=== PATIENT | male | born 1930 | race Caucasian/White ===

== ENCOUNTER 2016-08-31 17:10 | Inpatient (IN) | payer MEDICARE, BC ==
[~2016-08-31] VITALS: Ht 167.6 cm; Wt 78.5 kg
[~2016-08-31 17:10] MED LIST: ASCO500T8 PO; ASPI-84 PO; CHOL100040 PO; DICL75TA PO; DUTA0.5C PO; FOLI1TAB2 PO; HYDR1TAB PO; METO25TA6 PO; SIMV40TA2 PO; TAMS-12 PO
--- NOTE | 2016-08-31 17:20 | NUR ---
AAOX3, came to ER c/o CHEST PAIN WITH SOB FOR A FEW DAYS; CP AND SOB WORSENS WITH ACTIVITY. Skin is warm and dry. Resp is even and unlabored with NAD noted. Pain free during assessment. Assisted to hospital gown, placed on monitor. Will continuously monitor the patient. Awaiting MD for eval.
--- NOTE | 2016-08-31 17:21 | NUR ---
CALLED NURSING SUP. FOR TELE BED
[2016-08-31 17:32] LABS: EOSINOPHILS # (AUTO) 0.2 /CMM (0.0-0.7); EOSINOPHILS % (AUTO) 4.3 % (0.0-6.0); HEMATOCRIT 43 % (39-51); HEMOGLOBIN 14.2 g/dL (13.5-17.5); LYMPHOCYTES # (AUTO) 0.6 /CMM (0.8-4.8); LYMPHOCYTES % (AUTO) 13.3 % (20.0-44.0); MEAN CORPUSCULAR HEMOGLOBIN 29 PG (26.0-33.0); MEAN CORPUSCULAR HGB CONC 34 g/dl (31.0-36.0); MEAN CORPUSCULAR VOLUME 86 fL (80-96); MONOCYTES # (AUTO) 0.4 /CMM (0.1-1.30); MONOCYTES % (AUTO) 8.4 % (2.0-12.0); NEUTROPHILS # (AUTO) 3.5 /CMM (1.8-8.9); PLATELET COUNT (AUTO) 164 /CMM (150-450); RDW COEFFICIENT OF VARIATION 15.3 (11.5-15.0); RED BLOOD CELL COUNT(AUTO) 4.95 MIL/uL (4.5-6.0); WHITE BLOOD COUNT (AUTO) 4.7 K/uL (4.3-11.0)
--- NOTE | 2016-08-31 17:39 | NUR ---
Report given to BERTO Quispe for MELISSA
[2016-08-31 17:50] LABS: INR 1.02 (0.87-1.13); PROTHROMBIN TIME 10.9 SECS (9.5-12.7)
[2016-08-31 17:54] LABS: CALCIUM, SERUM 8.6 mg/dL (8.5-10.1); CREATININE 1.8 mg/dL (0.6-1.3); POTASSIUM 4.6 mmol/L (3.5-5.1)
[2016-08-31 18:02] LABS: TROPONIN I 0.027 ng/mL (0.00-0.056)
[2016-08-31 18:07] LABS: ALBUMIN 4.2 g/dL (3.4-5.0); BILIRUBIN,DIRECT 0.2 mg/dL (0.0-0.2); BILIRUBIN,TOTAL 0.8 mg/dL (0.2-1.0); TOTAL PROTEIN, SERUM 6.9 g/dL (6.4-8.2)
[2016-08-31] MEDS ORDERED: ASPI81TA2 PO (18:30)
[2016-08-31] MEDS ORDERED: PANT40TA2 PO (18:30)
[2016-08-31] MEDS ORDERED: AMLO5TAB2 PO (18:30)
--- NOTE | 2016-08-31 18:49 | NUR ---
Patient does not wish to proceed with medical care recommended by Dr. BOOTHE. Patient given information related to possible complications, up to and including , which could occur as a result of leaving the hospital at this time. Patient verbalizes understanding of risks involved due to leaving against medical advice. Patient has signed AMA form.
--- NOTE | 2016-08-31 18:55 | NUR ---
IV removed. Catheter intact and site benign. Pressure and 4x4 applied to site. No bleeding noted.
--- NOTE | 2016-08-31 19:00 | NUR ---
PT AMBULATED OUT AND DID NOT FEEL WELL. PT DECIDED TO STAY.
--- NOTE | 2016-08-31 19:05 | NUR ---
PT IS BACK IN ROOM #7.
[2016-08-31] MEDS ORDERED: FUROSEMIDE 20 MG/2 ML VIAL ONE (19:08)
[2016-08-31] MEDS ORDERED: ASPIRIN 81 MG TAB.CHEW ONE (19:08)
--- NOTE | 2016-08-31 19:10 | NUR ---
CALLED [facility] DR. COHEN
--- NOTE | 2016-08-31 19:13 | NUR ---
PT REC'D 162 MG ASPIRIN PO.
[2016-08-31] MEDS ORDERED: NITROGLYCERIN 0.4 MG/TAB BOTTLE ONE (19:24)
[2016-08-31] MEDS ORDERED: NITROGLYCERIN 0.4 MG/TAB BOTTLE SL PRN (19:30)
[2016-08-31] MEDS ORDERED: FUROSEMIDE 20 MG/2 ML VIAL IV SCH (19:30)
[2016-08-31] MEDS ORDERED: ASPIRIN 81 MG TAB.CHEW PO ONE (19:30)
--- NOTE | 2016-08-31 19:39 | NUR ---
PT DENIES CP AT THIS TIME. ONLY ONE NITRO GIVEN SL. DR. BOOTHE IS AWARE. NO FURTHER NITRO TO BE GIVEN AT THIS TIME.
--- NOTE | 2016-08-31 19:48 | NUR ---
PT'S IS AT THE BEDSIDE.
--- NOTE | 2016-08-31 20:41 | NUR ---
REPORT GIVEN TO BERTO LOVETT
[2016-08-31] MEDS ORDERED: ENOXAPARIN SODIUM 30 MG/0.3 ML DISP.SYRIN SQ SCH (21:00)
[2016-08-31] MEDS ORDERED: MORPHINE SULFATE INJ 2 MG/ML DISP.SYRIN IV PRN (21:00)
[2016-08-31] MEDS ORDERED: NITROGLYCERIN PACKET 1 GM PACKET TD PRN (21:00)
[2016-08-31] MEDS ORDERED: ZOLPIDEM TARTRATE 5 MG TABLET PO PRN (21:00)
[2016-08-31] MEDS ORDERED: Z GUARD REMEDY 2 OZ OINT TP PRN (21:00)
[2016-08-31] MEDS ORDERED: ACETAMINOPHEN 325 MG TABLET PO PRN (21:00)
[2016-08-31] MEDS ORDERED: MAG HYDROX/AL HYDROX/SIMETH 30 ML UDC PO PRN (21:00)
[2016-08-31] MEDS ORDERED: PANTOPRAZOLE 40 MG TABLET.DR PO SCH (21:00)
[2016-08-31] MEDS ORDERED: HYDROCODONE/APAP 5/325MG 1 EACH TABLET PO PRN (21:00)
[2016-08-31] MEDS ORDERED: ENOXAPARIN SODIUM 40 MG/0.4 ML DISP.SYRIN SQ SCH (21:00)
[2016-08-31] MEDS ORDERED: ONDANSETRON HCL/PF 4 MG/2 ML VIAL IVP PRN (21:00)
[2016-08-31] MEDS ORDERED: MAGNESIUM HYDROXIDE 30 ML UDC PO PRN (21:00)
--- NOTE | 2016-08-31 21:05 | NUR ---
PT TRANSPORTED TO [facility] VIA GURNEY PER PROTOCOL.
--- NOTE | 2016-08-31 21:20 | NUR ---
RN NOTES RECEIVED PX AWAKE, ALERT, ORIENTED AMBULATORY, TRANSFERRED FROM ER VIA GURNEY; PX CAME FROM HOME WITH CC OF CHEST PAIN, AND SOB; ORIENTED X 3, FOLLOWS COMMAND, COOPERATIVE; NOT IN RESP DISTRESS; HOOKED PX ON THE MONITOR, NSR, BIBASAL CRACKLES NOTED BUT RESP EVEN AND UNLABORED, NOT IN DISTRESS; MOVES INDEPENDENTLY IN BED; NOT SKIN BREAKDOWN; PIV LEFT AC FLUSHED WITH SALINE,INTACT,PATENT; DISCUSSED PLANN OF CARE; ORIENTED TO THE UNIT.
[2016-08-31 21:30] VITALS: BP 141/65
[2016-09-01] VITALS: BP 138/62
--- NOTE | 2016-09-01 00:22 | NUR ---
RN NOTES CONDITION AND NEURO STATUS UCHANGED; DENIED CHEST PAIN, SOB, DIZZINESS; NSR ON MONITOR; ON CONTINUOUS PULSE OX; ON NC AT 2 LPM SATURATING 96%; PLACED BILAT DVT PUMPS.
[2016-09-01 04:00] VITALS: BP 138/63
--- NOTE | 2016-09-01 06:12 | NUR ---
RN NOTES HAD 1 BM AND DIAPER SOAKED OF URINE; CLEANED PX AND CHANGED GOWN AND BED LINENS; TOLERATED PROCEDURE WELL; CHANGED DRESSING ON SACRAL AREA USING MEPILEX; DENIED PAIN, SOB, N/V; NO NEW SKIN BREAKDOWN; PIV STILL INTACT AND PATENT; SR ON MONITOR; WILL ENDORSE TO NEXT RN. Addendum: 09/01/16 at 0617 by STACY NANCE RN WRONG ENTRY, WRONG PATIENT
--- NOTE | 2016-09-01 06:17 | NUR ---
RN NOTES CONDITION AND NEURO STATUS UNCHANGED; DENIED PAIN, SOB, N/V, CHEST PAIN, SR ON MONITOR WITH O2 SAT AT 94-95%; REFUSED EARLY AM CARE; REFUSED BLOOD DRAW, INFORMED THAT INTERNET SALES MANAGER WILL COME BACK DURING THE DAY. PIV FLUSHED PATENT AND INTACT, NO SKIN BREAKDOWN; WILL ENDORSE TO NEXT RN.
[2016-09-01] MEDS ORDERED: PANTOPRAZOLE 40 MG TABLET.DR PO SCH (07:30)
--- NOTE | 2016-09-01 07:30 | NUR ---
[facility] RN- INITIAL NOTE RECEIVED PT A/O X3. ON 2L NC, RESPIRATIONS EVEN AND UNLABORED, NO SOB OR DISTRESS PRESENT. TELE MONITOR REVEALS SINUS RHYTHM, HR= 65. PT DENIES CHEST PAIN OR DISCOMFORT AT THIS TIME. LAC 18G HL FLUSHED, PATENT AND INTACT. IV SITE FREE OF REDNESS, SWELLING & INFLAMMATION. SAFETY MEASURES TAKEN: BED LOCKED AND IN LOW POSITION, SIDE RAILS UP X2, BED ALARM ON AND CALL LIGHT WITHIN REACH, WILL CONTINUE TO MONITOR.
[2016-09-01 08:00] VITALS: BP 142/70
--- NOTE | 2016-09-01 08:00 | NUR ---
DR. PARIKH AT BEDSIDE EVALUATING PT. PT VERBALIZED DESIRE TO LEAVE AMA. AWARE. JANE CHARGE NURSE MADE AWARE. WILL CONTINUE TO MONITOR.
[2016-09-01] MEDS ORDERED: TAMSULOSIN 0.4 MG CAP.SR.24H PO SCH (09:00)
[2016-09-01] MEDS ORDERED: DUTASTERIDE (0.5 MG) 0.5 MG CAPSULE PO SCH (09:00)
[2016-09-01] MEDS ORDERED: METOPROLOL TARTRATE 25 MG TABLET PO SCH (09:00)
[2016-09-01] MEDS ORDERED: ISOSORBIDE DINITRATE (20MG) 20 MG TABLET PO SCH (09:00)
[2016-09-01] MEDS ORDERED: SIMVASTATIN 40 MG TABLET PO SCH (09:00)
[2016-09-01] MEDS ORDERED: ASPIRIN 81 MG TAB.CHEW PO SCH (09:00)
--- NOTE | 2016-09-01 09:30 | NUR ---
PT LEFT AMA, AMBULATORY AND HAS HIS CAR IN THE PARKING LOT. PT DENIES CHEST PAIN OR DISCOMFORT. PT AWARE OF RISKS/BENEFITS OF LEAVING AMA. ALL BELONGINGS SENT WITH PT. IV REMOVED. CHARGE NURSE AWARE.
== END 2016-09-01 09:37 | disposition left against medical advice (07) | DRG 303 ==
LOC: ER 17:11 → TELE 19:14 → TELE-TD 20:35
DX: I25.110 Atherosclerotic heart disease of native coronary artery with unstable angina pectoris (principal); J98.11 Atelectasis; R07.9 Chest pain, unspecified; N28.9 Disorder of kidney and ureter, unspecified; I73.9 Peripheral vascular disease, unspecified; E78.5 Hyperlipidemia, unspecified; M19.90 Unspecified osteoarthritis, unspecified site; Z90.5 Acquired absence of kidney; I11.9 Hypertensive heart disease without heart failure; Z98.61 Coronary angioplasty status; I70.0 Atherosclerosis of aorta
CPT/HCPCS: 36415; 71010-TC; 80048-TC; 80076-TC; 83880; 84484-TC; 85025-TC; 85730-TC; 87081-TC; A4606; J1650; J1940; Z7610

== ENCOUNTER 2016-12-13 07:49 | Emergency (ER) | payer MEDICARE, BC ==
[~2016-12-13] VITALS: Ht 162.6 cm; Wt 78.0 kg
[2016-12-13 07:49] VITALS: BP 153/86
[~2016-12-13 07:49] MED LIST changes: +AMLO5TAB2 PO; -ASPI-84 PO; +ASPI81TA2 PO; -DICL75TA PO; +PANT40TA2 PO
== END 2016-12-13 08:03 | disposition home or self-care (01) ==
LOC: ER 07:50
DX: S50.12XA Contusion of left forearm, initial encounter (principal); X58.XXXA Exposure to other specified factors, initial encounter; Y93.89 Activity, other specified; Y92.89 Other specified places as the place of occurrence of the external cause; Y99.8 Other external cause status; Z98.890 Other specified postprocedural states
CPT/HCPCS: 99282; A4606; A6253 ×2; Z7610

== ENCOUNTER 2017-08-01 17:17 | Emergency (ER) | payer MEDICARE, BC ==
[~2017-08-01] VITALS: Ht 165.1 cm; Wt 80.7 kg
[~2017-08-01 17:17] MED LIST changes: -AMLO5TAB2 PO; +AMLO5TAB7 PO; +ASPI-1169 PO; -ASPI81TA2 PO
--- NOTE | 2017-08-01 17:25 | NUR ---
SELF PRESENTS TO ED: SOB > 1 WEEK. SEEN BY MD FOR EVAL. NOTED ON AND OFF TACHY. OTHER VS. FAMILY MEMBER AT BS. SAFETY AND COMFORT MEASURES PROVIDED. WILL MONITOR.
--- NOTE | 2017-08-01 17:35 | NUR ---
R AC G 18 IV STARTED, BLOOD TESTS DRAWN AND SEND TO LAB
[2017-08-01 17:47] LABS: BASOPHILS % (AUTO) 0.1 % (0.0-2.0); EOSINOPHILS % (AUTO) 2.7 % (0.0-6.0); HEMATOCRIT 41 % (39-51); HEMOGLOBIN 13.9 g/dL (13.5-17.5); LYMPHOCYTES # (AUTO) 0.7 /CMM (0.8-4.8); LYMPHOCYTES % (AUTO) 12.2 % (20.0-44.0); MEAN CORPUSCULAR HGB CONC 34 g/dl (31.0-36.0); MEAN CORPUSCULAR VOLUME 83 fL (80-96); MONOCYTES # (AUTO) 0.5 /CMM (0.1-1.30); MONOCYTES % (AUTO) 9.7 % (2.0-12.0); NEUTROPHILS # (AUTO) 4.2 /CMM (1.8-8.9); NEUTROPHILS % (AUTO) 75.3 % (43.0-81.0); PLATELET COUNT (AUTO) 182 /CMM (150-450); RDW COEFFICIENT OF VARIATION 14.7 (11.5-15.0); RED BLOOD CELL COUNT(AUTO) 4.93 MIL/uL (4.5-6.0); WHITE BLOOD COUNT (AUTO) 5.6 K/uL (4.3-11.0)
[2017-08-01 18:22] LABS: CALCIUM, SERUM 9.2 mg/dL (8.5-10.1); CARBON DIOXIDE 27 mmol/L (21-32); CHLORIDE 105 mmol/L (98-107); CREATININE 1.6 mg/dL (0.6-1.3); GLUCOSE 128 mg/dL (74-106); POTASSIUM 4.5 mmol/L (3.5-5.1); SODIUM SERUM 139 mmol/L (136-145); UREA NITROGEN, BLOOD 31 mg/dL (7-18)
[2017-08-01 18:26] LABS: INR 1.05 (0.85-1.15)
[2017-08-01 18:29] LABS: TROPONIN I < 0.017 ng/mL (0.00-0.056)
[2017-08-01 18:34] LABS: ALANINE AMINOTRANSFERASE 27 U/L (12-78); ALBUMIN 3.8 g/dL (3.4-5.0); ALKALINE PHOSPHATASE 116 U/L (46-116); ASPARTATE AMINOTRANSFERASE 16 U/L (15-37); B-TYPE NATRIURETIC PEPTIDE 1211 PG/ML (0-125); BILIRUBIN,DIRECT 0.3 mg/dL (0.0-0.2); BILIRUBIN,TOTAL 0.9 mg/dL (0.2-1.0)
--- NOTE | 2017-08-01 18:50 | NUR ---
New ndiaye in ED - 08/01/17 at 1913 by DARRYN REPORT GIVEN TO ED, MECHANICS HANDYMAN NURSE FOR MELISSA.
--- NOTE | 2017-08-01 18:50 | NUR ---
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
[2017-08-01] MEDS ORDERED: APIX5TAB PO (18:59)
[2017-08-01] MEDS ORDERED: DORZ10DR10 EACHEYE (18:59)
[2017-08-01] MEDS ORDERED: ATOR80TA PO (18:59)
[2017-08-01] MEDS ORDERED: METO-356 PO (18:59)
[2017-08-01] MEDS ORDERED: FINA5TAB11 PO (18:59)
[2017-08-01] MEDS ORDERED: IV NS 0.9% 500 ML BAG IV ONE (19:00)
[2017-08-01] MEDS ORDERED: IOHEXOL-350 100 ML VIAL IV ONE (19:14)
[2017-08-01] MEDS ORDERED: IV NS 0.9% 250 ML IV ONE (19:14)
--- NOTE | 2017-08-01 20:37 | NUR ---
CALLED [facility] FOR READ ON CT
[2017-08-01 21:26] VITALS: BP 124/59
== END 2017-08-01 21:27 | disposition home or self-care (01) ==
LOC: ER 17:18
DX: R07.9 Chest pain, unspecified (principal); I11.0 Hypertensive heart disease with heart failure; I50.9 Heart failure, unspecified; I10 Essential (primary) hypertension; Z79.01 Long term (current) use of anticoagulants; Z79.82 Long term (current) use of aspirin; Z90.5 Acquired absence of kidney; Z90.89 Acquired absence of other organs
CPT/HCPCS: 36415; 71045; 71275; 80048; 80076; 83880; 84484; 85025; 85730; 87081; 93005; 99285; A4606; J7040; J7050; Q9967; Z7610

== ENCOUNTER 2019-10-19 15:49 | Emergency (ER) | payer MEDICARE, BC ==
[~2019-10-19] VITALS: Ht 170.2 cm; Wt 76.2 kg
[~2019-10-19 15:49] MED LIST changes: -AMLO5TAB7 PO; +AMLO5TAB9 PO; +APIX5TAB PO; -ASCO500T8 PO; -ASPI-1169 PO; +ATOR80TA PO; -CHOL100040 PO; +DORZ10DR10 EACHEYE; -DUTA0.5C PO; +FINA5TAB11 PO; -HYDR1TAB PO; +METO25TA4 PO; -METO25TA6 PO; -SIMV40TA2 PO
--- NOTE | 2019-10-19 16:17 | NUR ---
CAME IN FOR WORSENING SOB AND BLE EDEMA WORST FOR THE PAST WEEK, TO ER BED 8, HOOKED TO MONITOR, CHANGED TO HOSP GOWN, WARM BLANKET PROVIDED, PATIENT AAO x 4, NOT IN RESPIRATORY DISTRESS. DR CLIFFORD AT BEDSIDE
[2019-10-19 16:36] LABS: BASOPHILS % (AUTO) 0.3 % (0.0-2.0); EOSINOPHILS % (AUTO) 2.2 % (0.0-6.0); HEMATOCRIT 41 % (39-51); HEMOGLOBIN 13.8 g/dL (13.5-17.5); LYMPHOCYTES # (AUTO) 0.6 /CMM (0.8-4.8); LYMPHOCYTES % (AUTO) 13.7 % (20.0-44.0); MEAN CORPUSCULAR HGB CONC 34 g/dl (31.0-36.0); MEAN CORPUSCULAR VOLUME 92 fL (80-96); MONOCYTES # (AUTO) 0.4 /CMM (0.1-1.30); MONOCYTES % (AUTO) 8.1 % (2.0-12.0); NEUTROPHILS # (AUTO) 3.4 /CMM (1.8-8.9); NEUTROPHILS % (AUTO) 75.7 % (43.0-81.0); PLATELET COUNT (AUTO) 160 /CMM (150-450); RED BLOOD CELL COUNT(AUTO) 4.42 MIL/uL (4.5-6.0); WHITE BLOOD COUNT (AUTO) 4.5 K/uL (4.3-11.0)
[2019-10-19] MEDS ORDERED: APIX2.5T PO (16:42)
[2019-10-19] MEDS ORDERED: MULT-1168 PO (16:42)
[2019-10-19] MEDS ORDERED: METO25TA3 PO (16:42)
[2019-10-19] MEDS ORDERED: ATOR40TA PO (16:42)
[2019-10-19] MEDS ORDERED: DUTA0.5C PO (16:42)
[2019-10-19] MEDS ORDERED: PANT40TA2 PO (16:42)
[2019-10-19] MEDS ORDERED: AMLO10TA7 PO (16:42)
[2019-10-19] MEDS ORDERED: TAMS-12 PO (16:42)
[2019-10-19] MEDS ORDERED: AMIO200T4 PO (16:42)
[2019-10-19 16:59] LABS: CALCIUM, SERUM 8.9 mg/dL (8.5-10.1); CARBON DIOXIDE 29 mmol/L (21-32); CHLORIDE 101 mmol/L (98-107); CREATININE 1.6 mg/dL (0.6-1.3); GLUCOSE 153 mg/dL (74-106); POTASSIUM 4.6 mmol/L (3.5-5.1); SODIUM SERUM 135 mmol/L (136-145); UREA NITROGEN, BLOOD 25 mg/dL (7-18)
[2019-10-19 17:12] LABS: ALANINE AMINOTRANSFERASE 44 U/L (12-78); ALBUMIN 3.8 g/dL (3.4-5.0); ALKALINE PHOSPHATASE 104 U/L (46-116); ASPARTATE AMINOTRANSFERASE 30 U/L (15-37); B-TYPE NATRIURETIC PEPTIDE 2283 PG/ML (0-125); BILIRUBIN,DIRECT 0.4 mg/dL (0.0-0.2); BILIRUBIN,TOTAL 1.2 mg/dL (0.2-1.0); TOTAL PROTEIN, SERUM 6.3 g/dL (6.4-8.2)
--- NOTE | 2019-10-19 18:32 | NUR ---
DR CLIFFORD AT BEDSIDE TO EXPLAIN RISKS AND CONSEQUENCES INVOLVED IN LEAVING HOSPITAL AT THIS TIME
[2019-10-19] MEDS ORDERED: FUROSEMIDE 40 MG/4 ML VIAL ONE (18:36)
[2019-10-19] MEDS: FUROSEMIDE 40 MG/4 ML VIAL IV ONE (18:38)
--- NOTE | 2019-10-19 18:40 | NUR ---
PATIENT SIGNED AMA FORM.
--- NOTE | 2019-10-19 18:43 | NUR ---
IV removed. Catheter intact and site benign. Pressure and 4x4 applied to site. No bleeding noted.
[2019-10-19 18:45] VITALS: BP 134/73
== END 2019-10-19 18:46 | disposition left against medical advice (07) ==
LOC: ER 15:57
DX: I11.0 Hypertensive heart disease with heart failure (principal); I50.9 Heart failure, unspecified; R06.02 Shortness of breath; R60.0 Localized edema; I48.91 Unspecified atrial fibrillation; Z95.0 Presence of cardiac pacemaker; Z95.5 Presence of coronary angioplasty implant and graft; Z90.5 Acquired absence of kidney; Z98.890 Other specified postprocedural states; Z60.2 Problems related to living alone; Z79.899 Other long term (current) drug therapy
CPT/HCPCS: 36415; 71045; 80048; 80076; 83880; 84484; 85025; 85730; 93005; 96374; 99285; J1940